=== PATIENT | female | born 1980 | race Caucasian/White ===

== ENCOUNTER 2016-06-03 19:32 | Emergency (ER) | payer OTHER | END 2016-06-03 22:57 | disposition home or self-care (01) | LOC: SED 19:32 | DX: S81.812A Laceration without foreign body, left lower leg, initial encounter (principal); S39.012A Strain of muscle, fascia and tendon of lower back, initial encounter; Y08.89XA Assault by other specified means, initial encounter; Y92.009 Unspecified place in unspecified non-institutional (private) residence as the place of occurrence of the external cause | CPT/HCPCS: 12034; 99283 ==

== ENCOUNTER 2016-06-13 04:03 | Emergency (ER) | payer OTHER ==
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
== END 2016-06-13 06:22 | disposition home or self-care (01) ==
LOC: CED 04:03
DX: S80.02XA Contusion of left knee, initial encounter (principal); T81.33XA Disruption of traumatic injury wound repair, initial encounter; S80.01XA Contusion of right knee, initial encounter; F17.210 Nicotine dependence, cigarettes, uncomplicated; V49.00XA Driver injured in collision with unspecified motor vehicles in nontraffic accident, initial encounter
CPT/HCPCS: 72100; 73562; 99284